=== PATIENT | male | born 1955 ===

== ENCOUNTER 2023-07-04 09:20 | Inpatient (IN) ==
[2023-07-04] MEDS ORDERED: MoRPHine SULFATE 4 MG/ML 1 ML CARP\\VIAL ONE (09:34)
[2023-07-04] MEDS ORDERED: NITROGLYCERIN/D5W 100 MCG/ML BTL ONE (09:35)
[2023-07-04] MEDS ORDERED: HEPARIN SOD (PORCINE) 1000 UNIT/ML ONE (09:37)
[2023-07-04] MEDS ORDERED: NITROGLYCERIN SL 0.4 MG/TAB TAB ONE (09:39)
--- NOTE | 2023-07-04 09:39 | XRay Report ---
SINGLE VIEW CHEST CLINICAL HISTORY: Atypical chest pain. FINDINGS: An AP, portable, upright chest radiograph is obtained. No prior studies are available for c omparison at the time of dictation. The examination is degraded by portable technique and apical lord otic positioning. The heart is enlarged and there is mild pulmonary vascular congestion. Scarring/ate lectasis is noted at the lung bases. The lungs and pleural spaces are otherwise clear. No pneumothora x is seen. The skeletal structures are osteopenic. The bony thorax is grossly intact. Fusion hardware is noted in the lower cervical spine. IMPRESSION: Cardiomegaly with pulmonary vascular congestion. ACT 112: Negative or not required by law. Electronically signed by: Ruben Batres M.D. 07/04/2023 9:38 AM
[2023-07-04] MEDS ORDERED: TICAGRELOR 90 MG TAB ONE (09:41)
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
[2023-07-04] MEDS ORDERED: Heparin IV Adult Wt-Based Low-Dose WITH Bolus Protocol IV STA (09:43)
[2023-07-04] MEDS ORDERED: MoRPHine SULFATE 4 MG/ML 1 ML CARP\\VIAL IV STA ×2 (09:43→09:49)
[2023-07-04] MEDS ORDERED: MIDAZOLAM HCL 1 MG/ML 2ML VIAL ONE (09:44)
[2023-07-04] MEDS ORDERED: fentaNYL citrate PF 100 MCG/2 ML VIAL ONE ×2 (09:44→09:46)
[2023-07-04] MEDS ORDERED: niCARdipine HCL INJ 2.5 MG/ML 10 ML AMP ONE (09:44)
[2023-07-04] MEDS ORDERED: HEPARIN (PORCINE) 1000 UNIT/ML 10 ML (CATH LAB USE ONLY) ONE (09:44)
[2023-07-04] MEDS ORDERED: NITROGLYCERIN/D5W 100MCG/ML 20ML SYR ONE (09:45)
[2023-07-04] MEDS ORDERED: STAT IV Infusion **Titration per Protocol STA (09:46)
[2023-07-04 09:55] LABS: Basophils # (auto) 0.03 K/uL (0-0.2); Basophils % (auto) 0.5 %; Eosinophils % (auto) 1.6 %; Hematocrit (blood only) 47.3 % (42.0-52.0); Hemoglobin 16.1 g/dl (14.0-18.0); Immature Granulocytes # (auto) 0.02 K/uL (0.01-0.20); Immature Granulocytes % (auto) 0.3 %; Lymphocytes % (auto) 28.2 %; Mean Corpuscular Hemoglobin 30.1 pg (25.0-34.0); Mean Corpuscular Volume 88.6 fL (80.0-100.0); Mean Platelet Volume 10.4 fL (9.4-12.4); Monocytes # (auto) 0.57 K/uL (0.11-0.59); Monocytes % (auto) 8.9 %; Neutrophils # (auto) 3.87 K/uL (1.40-6.50); Neutrophils % (auto) 60.5 %; Platelet Count 163 K/uL (130-400); RDW Coefficient of Variation 13.5 % (11.5-14.5); RDW Standard Deviation 43.5 fL (36.4-46.3); Red Blood Count 5.34 M/uL (4.70-6.10); White Blood Count 6.39 K/ul (4.8-10.8)
[2023-07-04] MEDS ORDERED: HEPARIN SOD (PORCINE) 1000 UNIT/ML IV ONE (09:58)
[2023-07-04] MEDS ORDERED: NITROGLYCERIN/D5W 100MCG/ML 250 ML IV SCH (10:00)
[2023-07-04] MEDS ORDERED: HEPARIN SODIUM/DEXTROSE 25,000 UNITS/500 ML BAG IV SCH (10:00)
[2023-07-04 10:11] LABS: Albumin Globulin Ratio 1.5 (0.9-2); Albumin Level 4.3 gm/dl (3.4-5.0); BUN Creatinine Ratio 20.9 (10-20); Calcium 9.6 mg/dl (8.6-10.3); Creatinine Clr Calc Pharmacy 104.4 ml/min; Est GFR (African American) 103.3 ml/min; Est GFR (Non-African American) 89.1 ml/min; Globulin 2.8 gm/dl (2.5-4.0); Potassium 3.9 mmol/L (3.5-5.1); Total Protein 7.1 gm/dl (6.0-8.3)
[2023-07-04 10:17] LABS: Troponin I High Sensitivity 14.6 pg/ml (0-20)
[2023-07-04] MEDS ORDERED: ATROPINE SULFATE 0.1 MG/ML 10ML SYR IV PRN (10:35)
[2023-07-04] MEDS ORDERED: ONDANSETRON INJ 2 MG/ML 2 ML VIAL IV PRN (10:35)
[2023-07-04] MEDS ORDERED: ACETAMINOPHEN 325 MG TAB PO PRN (10:35)
[2023-07-04] MEDS ORDERED: SODIUM CHLORIDE 0.9% 1000ML 1,000 ML IV SCH (10:45)
--- NOTE | 2023-07-04 10:47 | Pre Anesthesia Assessment ---
Date of Service July 04, 2023 Pre Sedation Assessment Vital Signs Temp Pulse Resp BP Pulse Ox O2 Del Method 07/04/23 09:50 59 L 15 156/83 H 97 Room Air 07/04/23 09:45 56 L 22 148/80 H 94 Room Air 07/04/23 09:34 60 16 168/82 H 98 Room Air 07/04/23 09:37 36.8 C 61 18 168/82 H 97 Room Air 07/04/23 09:36 62 Cardiovascular RRR, no murmur, no edema Respiratory normal respiratory effort, lungs clear to auscultation Pre-Sedation Airway Assessment Smoking Status: Never smoker Mallampati 2 ASA 4 Notes The planned sedation has been discussed with the patient. Informed Consent was obtained. I have identified the patient, determined the appropriateness of sedation and have assessed the patient immediately prior to the procedure. All medicine(s) and interventions are by my order. [facility] [place] Procedure Codes (Charges) Indication for Procedure Indication for procedure: Acute ST elevation NV
--- NOTE | 2023-07-04 10:49 | Post Anesthesia Assessment ---
Date of Service July 04, 2023 Post Sedation Assessment Vital Signs Temp Pulse Pulse Resp BP BP Pulse Ox 07/04/23 10:45 70 16 117/65 90 07/04/23 09:50 59 L 15 156/83 H 97 07/04/23 09:45 56 L 22 148/80 H 94 07/04/23 09:34 60 16 168/82 H 98 07/04/23 09:37 36.8 C 61 18 168/82 H 97 07/04/23 09:36 62 O2 Del Method 07/04/23 10:45 Room Air 07/04/23 09:50 Room Air 07/04/23 09:45 Room Air 07/04/23 09:34 Room Air 07/04/23 09:37 Room Air 07/04/23 09:36 Recovery Score Activity: Moves 4 extremities Respiration: Deep Breath/Cough Circulation: +/-20% PreAnes Value Consciousness: Fully Awake Oxygen Saturation: > 92% On Room Air Post Anesthesia Score: 10 Discharge Sedation Level of Care: Fast Track Phase II Post Sedation Plan On clinical assessment, the patient appears to have tolerated the sedation without complications. Patient is recovering as anticipated. Patient will continue to be monitored by nursing and may be discharged when sedation discharge criteria are met per below protocol. Upon Completions of procedure up to 15 minutes continue every 5 minute vital signs and the P.A.R. score; then discharge to a Phase I or Fast Track to Phase II per the following guidelines: * Discharge Patient to appropriate Phase II area if PAR is 8 or greater or return to pre- procedure baseline. The post - procedure orders will be as directed. * If PAR score is less than 8 or not return to pre-procedure baseline then patient will follow Phase I monitoring till PAR is reached for Phase II. The Phase I may be done in procedure room or may call to secure a Phase I area. * If naloxone or flumazenil are used for reversal, hold in Phase I for continued monitoring from when last reversal dose was given for a minimum of 60 minutes or longer pending the nurse and/or physician discretion of patient condition before discharge to Phase II. Please call the Sedation Physician to re-evaluate and complete post-note for discharge to Phase II area. Do NOT discharge from procedure sedation or Phase 1 until post- sedation evaluation note is complete by procedure /sedation MD Sedation Discharge Instructions to be given to the patient at discharge to home. [facility] Procedure Codes (Charges) Indication for Procedure Indication for procedure: Acute ST elevation DC Sedation/Anesthesia Procedure 1: Sedation/Anesthesia: 33694 Mod Sedation by the same physician;Init15 Min Child Age 5 & Up (Initial 15 min, start 1010) Total Sedation Time (minutes): 19 Procedure 2: Sedation/Anesthesia: 83900 Mod Sedation by the same physician; Ea [id number] Minutes (Additional 4 min, and 1029) Total Sedation Time (minutes): 19
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
[2023-07-04] MEDS: Heparin IV Adult Wt-Based Low-Dose WITH Bolus Protocol IV SCH ×3 (12:41→14:49)
[2023-07-04] MEDS: ICU Protocol for HYPERglycemia SCH ×3 (12:49→21:00)
[2023-07-04 13:35] LABS: Basophils # (auto) 0.01 K/uL (0-0.2); Basophils % (auto) 0.1 %; Eosinophils # (auto) 0.03 K/uL (0-0.50); Eosinophils % (auto) 0.3 %; Hematocrit (blood only) 43.8 % (42.0-52.0); Immature Granulocytes # (auto) 0.07 K/uL (0.01-0.20); Immature Granulocytes % (auto) 0.8 %; Lymphocytes # (auto) 0.79 K/uL (1.2-3.4); Lymphocytes % (auto) 8.7 %; Mean Corpuscular Hemoglobin 30.4 pg (25.0-34.0); Mean Corpuscular Hgb Conc 34.2 g/dL (32.0-36.0); Mean Corpuscular Volume 88.8 fL (80.0-100.0); Mean Platelet Volume 10.3 fL (9.4-12.4); Monocytes # (auto) 0.31 K/uL (0.11-0.59); Monocytes % (auto) 3.4 %; Neutrophils # (auto) 7.82 K/uL (1.40-6.50); Neutrophils % (auto) 86.7 %; Platelet Count 165 K/uL (130-400); RDW Coefficient of Variation 13.3 % (11.5-14.5); RDW Standard Deviation 43.5 fL (36.4-46.3); Red Blood Count 4.93 M/uL (4.70-6.10); White Blood Count 9.03 K/ul (4.8-10.8)
[2023-07-04 14:31] LABS: Estimated Average Glucose 120 mg/dl; Hemoglobin A1C 5.8 % (4.5-5.6)
--- NOTE | 2023-07-04 15:51 | Cardiac Catheterization ---
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 Cardiac Status Clinical evaluation leading to the procedure CAD Presenation: STEMI Anginal Classification: CCS IV Heart Failure: No Cardiogenic Shock within 24 Hours: No Cardiac Arrest within 24 Hours: No Imaging Studies Past 6 Months: No Stress Studies Past 6 Months: No STEMI OR Non-STEMI Symptom Onset Date: 07/04/23 Symptom Onset Time: 09:00 Thrombolytics: No Coronary Anatomy Dominant: Right Left Main (% Stenosis): Normal LAD (% Stenosis): Distal (100%) D1 (% Stenosis): Normal D2 (% Stenosis): Normal Circumflex (% Stenosis): Normal OM1 (% Stenosis): Normal L PL1 (% Stenosis): Normal RCA (% Stenosis): Proximal (30%) and Distal (30%) R PDA (% Stenosis): Normal R PL1 (% Stenosis): Normal Diagnostic Physicians Name: To Peterson MD, PhD Closure Device Percutaneous Entry Location: Radial Closure Device: Radial Band Recommendations: Medical Therapy and/or Counseling and PCI without planned CABG PCI Indication: PCI for STEMI - Stable First Noted: First EKG Lesion Segment Name: Distal LAD Culprit Artery: Yes Stenosis Prior to Rx (%): 100% Chronic Total Occlusion: No Pre-Procedure IVELISSE Flow: 0 Previously Treated Lesion: No Lesion Complexity: Non-High/Non-C Lesion Length (mm): 12 Thrombus Present: Yes Bifurcation Lesion: No Guidewire Across Lesion: Yes Intraprocedure Events Significant Disection: No Perforation: No Cardiac Cath Procedure Full Procedure Date July 04, 2023 Pre-Procedure Diagnosis Pre-Procedure Diagnosis: STEMI AUC Score AUC Score: 09 Post-Procedure Diagnosis Post-Procedure Diagnosis: Severe CAD Procedure(s) Performed Procedure(s) Performed: Coronary Angiography and Drug Eluting Stent 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 Sedated using IV Versed and fentanyl. Soft tissues of the right wrist were anesthetized using 2 mL of 1% Xylocaine. The right radial artery was accessed using modified Seldinger technique and a 6 Salvadorean radial artery glide sheath was placed. Patient was provided anticoagulation with IV heparin and antispasmodics including nicardipine and nitroglycerin. All catheters were advanced and exchanged over a 0.035 J-tip wire. Left coronary angiography in orthogonal views with a 5 Salv[place] 4 diagnostic catheter. Right coronary angiography in orthogonal views with a 5 Salvadorean JR4 diagnostic catheter Diagnostic catheters were removed. We next proceeded with PCI. 6 Salvadorean EBU 3.0 guide catheter was used to engage the left main coronary. Through this, a BMW reversal guidewire was advanced and positioned distally. The ACT was checked and additional heparin provided as needed to maintain therapeutic anticoagulation. Lesion was predilated using a 2.0 x 12 mm mini trek balloon inflated to 14 tani. A 2.5 x 15 mm Jerry drug-eluting stent was then deployed across the lesion at 18 tani for a final diameter of 2.75 mm. Stent balloon was removed and transcript evaluator angiography performed. Guidewire was removed and final angiographic evaluation was performed. Guide catheter was removed. Radial artery sheath was removed. Hemostasis was obtained using the TR band. Patient remained hemodynamically stable and asymptomatic. He was returned to the recovery area. This ended the case. Coronary angiography findings: [id number] vessel bifurcating into LAD and circumflex. No disease. LAD-this is a large caliber vessel. Proximal segment has mild luminal irregularities and provides a large septal branch and a small to medium caliber first diagonal. The mid segment has mild luminal irregularities and then there is a medium to large caliber branching second diagonal. This has mild disease. Just after the ostium the LAD is 100% occluded with IVELISSE 0 flow. [id number] and nondominant. Travels in the AV groove where the proximal segment is normal. It provides the first major obtuse marginal which is large and branching. This vessel has mild luminal irregularities. The mid AV groove circumflex becomes medium in caliber as it progresses distally the vessel becomes small and terminates in a small posterolateral branch. No angiographically significant disease in the circumflex or its branches. RCA-this is a very large and dominant branch. Proximally there is 30% focal stenosis. The mid segment has luminal irregularities and the distal segment has early 30% stenosis. It then bifurcates into a large PDA and a large multi branching posterolateral branch. These branch vessels have no angiographically significant disease. PCI of LAD- 0% residual stenosis post PCI IVELISSE-3 flow post PCI No evidence of dissection or perforation post PCI Summary: 1. Total occlusion of the early distal LAD. This is the culprit for acute TX. 2. Mild nonocclusive coronary disease in the remainder of the arteries as described 3. Successful PCI with implantation of a drug-eluting stent in the LAD. 4. Dual antiplatelet therapy with aspirin and Brilinta to complete 1 to 2 years therapy. 5. Guideline directed medical therapy for secondary prevention of coronary disease to include; low-dose aspirin, high intensity statin therapy, beta- jose, plus or minus RAISA inhibitor/ARB. Hemodynamics Rest Ao:: 135/80 mmHg Final Ao: 122/66 mmHg LV: Not performed Recommendations Recommendations: Medical Therapy and/or Counseling and PCI without planned CABG Radiation Exposure (mGy) 1273 mGy, fluoroscopy time 4.3 minutes Contrast (mls) 111 mL Anesthesia 1 mg IV Versed, 25 mcg IV fentanyl. Start time 1010, end time 1029 Procedural Complication(s) None Disposition ICU I attest to the content of the Intraoperative Record and any orders documented therein. Any exceptions are noted below. [employer] Card Cath Procedure Codes Cardiac Catheterization Procedure 1: Cardiovascular Cath Procedures: 07270 Coronaries Moderate Sedation Procedure 1: Sedation/Anesthesia: 04366 Mod Sedation by the same physician;Init15 Min Child Age 5 & Up (Initial 15-minute, start 1010) Procedure 2: Sedation/Anesthesia: 81905 Mod Sedation by the same physician; Ea [id number] Minutes (Additional 14-minute, end 1029) Stenting Procedure 1: Cardiovascular Stent Procedures: 01802 Perc transluminal revascularization of acute sub/total occl, aMI (LAD) PG Care Time/CCT Total # of Minutes Spent Total Time Spent with Patient: Total time spent is greater than 50% in coordination of care (as documented) at patient's floor/unit and/or counseling patient:
--- NOTE | 2023-07-04 17:54 | Electrocardiogram Report ---
Test Reason : Blood Pressure : / mmHG Vent. Rate : 056 BPM Atrial Rate : 056 BPM P-R Int : 174 ms QRS Dur : 076 ms QT Int : 416 ms P-R-T Axes : 033 050 047 degrees QTc Int : 401 ms Poor data quality, interpretation may be adversely affected Sinus bradycardia Low voltage QRS Acute anterior infarction Abnormal ECG No previous ECGs available Confirmed by Julio Cesar Grier ([id number]) on 07/04/2023 5:53:51 PM Referred By: Confirmed By:Julio Cesar Grier
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
[2023-07-04] MEDS: METOPROLOL TARTRATE 25 MG TAB PO SCH (20:59)
[2023-07-04] MEDS: TICAGRELOR 90 MG TAB PO SCH (20:59)
[2023-07-04] MEDS: MAGNESIUM SULFATE / D5W 1 GM/100 ML BAG IV SCH (22:38)
[2023-07-05] MEDS: MAGNESIUM SULFATE / D5W 1 GM/100 ML BAG IV SCH (00:12)
[2023-07-05 05:57] LABS: Troponin I High Sensitivity 1884.1 pg/ml (0-20)
[2023-07-05 06:48] LABS: BUN Creatinine Ratio 22.4 (10-20); Calcium 8.7 mg/dl (8.6-10.3); Creatinine Clr Calc Pharmacy 129.6 ml/min; Est GFR (African American) 114.4 ml/min; Est GFR (Non-African American) 98.7 ml/min; Magnesium 2.2 mg/dl (1.7-2.4); Potassium 3.9 mmol/L (3.5-5.1)
[2023-07-05 07:08] LABS: Basophils # (auto) 0.03 K/uL (0-0.2); Basophils % (auto) 0.4 %; Eosinophils # (auto) 0.08 K/uL (0-0.50); Eosinophils % (auto) 1.1 %; Hematocrit (blood only) 43.3 % (42.0-52.0); Hemoglobin 14.8 g/dl (14.0-18.0); Immature Granulocytes # (auto) 0.04 K/uL (0.01-0.20); Immature Granulocytes % (auto) 0.5 %; Lymphocytes # (auto) 1.03 K/uL (1.2-3.4); Lymphocytes % (auto) 13.6 %; Mean Corpuscular Hemoglobin 30.3 pg (25.0-34.0); Mean Corpuscular Hgb Conc 34.2 g/dL (32.0-36.0); Mean Corpuscular Volume 88.5 fL (80.0-100.0); Mean Platelet Volume 10.7 fL (9.4-12.4); Monocytes # (auto) 0.52 K/uL (0.11-0.59); Monocytes % (auto) 6.8 %; Neutrophils % (auto) 77.6 %; Platelet Count 166 K/uL (130-400); RDW Coefficient of Variation 13.4 % (11.5-14.5); RDW Standard Deviation 43.7 fL (36.4-46.3); Red Blood Count 4.89 M/uL (4.70-6.10)
[2023-07-05] MEDS ORDERED: POTASSIUM CHLORIDE CRTAB 20 MEQ TABCR PO STA (07:42)
--- NOTE | 2023-07-05 07:45 | Critical Care Progress Note ---
Date of Service July 05, 2023 Assessment & Plan (1) STEMI (ST elevation myocardial infarction): (2) Chest pain: (3) Obesity: Plan Chest x-ray 07/04/2023 personally reviewed: Good respiratory effort, bilateral costophrenic and cardiophrenic's are clean, increased cardiac silhouette, mildly increased pulmonary vascular markings -- STEMI S/p drug-eluting stent and LAD Continue with dual antiplatelet therapy and beta-jose Continue with atorvastatin RAISA inhibitor to be added once hemodynamic permits -- Ventricular tachycardia One of the episode lasting for more than 30 beats Likely from underlying revascularization Continue with beta-jose Follow-up 2D echo Keep potassium greater than 4, magnesium greater than 2, phosphorus greater than 3 --Dyslipidemia Continue with statin -- Obesity Advised to lose with diet and exercise Plan: In/out: +74, urine output 975 Potassium will be replaced to try to keep it greater than 4 Disposition as per cardiology. Please note the above document was generated using voice recognition software. It may contain grammatical, syntax or spelling errors.Any formal questions or concerns about the content, text or information contained within the body of this dictation should be directly addressed to the provider for clarification. Admission and Anticipated Discharge Date Admission Date: July 04, 2023 Subjective Patient seen and examined at bedside. No acute distress Overnight patient had 2 rounds of V. tach. One of the V. tach lasting greater than 30 beats Patient was hemodynamically stable during that time He denies any chest pain, no shortness of breath, no chest tightness Fair appetite, no nausea or vomiting Review of Systems Review of Systems: All systems reviewed & are unremarkable except as noted in Subjective Physical Exam Physical Exam: Constitutional: No acute distress HEENT: EOMI, PERRLA Respiratory system: Good air entry bilaterally, no wheeze, no rhonchi, mild crackles bilateral lower lobes more on the right side CVS: S1-S2 positive, no murmurs or gallops Abdomen: Soft, nontender, nondistended, positive bowel sounds x4 Extremities: +2 pulses bilaterally radialis/ dorsalis pedis, no cyanosis, no edema Neuro: Awake alert oriented x3 Psych: Normal mood and affect G/U: No [place] Skin: no rashes, warm and dry Lymphatic: no cervical or axillary lymphadenopathy Results & Data Results & Data Vital Signs (Past 12 Hours) Vital Signs Temp Pulse Resp BP Pulse Ox 08/23/23 07:08 61 07/05/23 06:00 59 L 14 142/73 H 97 07/05/23 05:00 59 L 12 146/78 H 95 07/05/23 04:00 60 3 L 155/83 H 95 07/05/23 03:00 55 L 13 138/74 95 07/05/23 02:00 57 L 14 165/84 H 95 07/05/23 01:00 63 20 146/63 H 96 07/05/23 00:00 58 L 10 L 148/72 H 96 07/04/23 23:00 57 L 7 L 149/76 H 95 07/04/23 22:00 59 L 12 162/76 H 96 07/04/23 20:00 36.8 C 07/05/23 00:00 36.8 C 07/05/23 03:53 36.7 C 07/05/23 00:30 57 L 07/04/23 21:30 65 19 97 07/04/23 21:00 61 16 149/68 H 95 07/04/23 20:59 62 20 190/87 H 97 07/04/23 20:30 62 18 96 07/04/23 20:00 61 17 184/93 H 96 Laboratory Results 07/05/23 04:28 07/05/23 04:23 Coding Level of Care Code 54854 SUB INP/OBS CARE 3/50MIN Diagnoses STEMI (ST elevation myocardial infarction) I21.3 Chest pain R07.9 Obesity E66.9
[2023-07-05] MEDS: ICU Protocol for HYPERglycemia SCH ×4 (08:06→20:30)
[2023-07-05] MEDS: ASPIRIN 81 MG ECTAB PO SCH (08:11)
[2023-07-05] MEDS: ATORVASTATIN 40 MG TAB PO SCH (08:11)
[2023-07-05] MEDS: METOPROLOL TARTRATE 25 MG TAB PO SCH ×2 (08:11→20:01)
[2023-07-05] MEDS: TICAGRELOR 90 MG TAB PO SCH ×2 (08:11→20:01)
--- NOTE | 2023-07-05 15:12 | Hospitalist Progress Note ---
Date of Service July 05, 2023 Assessment & Plan (1) STEMI (ST elevation myocardial infarction): (2) S/P coronary artery stent placement: (3) Obesity: Plan Patient is a 68 yr male with significant past medical history presents with substernal chest pain radiating to back. STEMI: --CXR:Cardiomegaly with pulmonary vascular congestion. 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 DVT Px: SCDs Code Status FULL CODE Admission and Anticipated Discharge Date Admission Date: July 04, 2023 Subjective Patient is seen and examined at bedside Denies any recurrence of chest pain Denies any dyspnea, dizziness, nausea, abd pain Offers no complaints today Review of Systems Review of Systems: All systems reviewed & are unremarkable except as noted in Subjective Physical Exam Physical Exam: Physical Exam: Vitals signs as noted above General Appearance:Moderately built and nourished, no apparent distress Head: normocephalic, Atraumatic Eyes: normal inspection, EOMI Neck: supple, Trachea midline Respiratory/Chest: Normal breath sounds, CTA, No accessory muscle use Cardiovascular: S1, S2, No murmur Abdomen/GI:Soft, Non tender, Bowel sounds present Extremities/Musculoskeletal:normal inspection, no edema Neurologic/Psych:AAOX3, grossly no focal neurological deficits Skin: normal color, warm Results & Data Results & Data Vital Signs (Past 12 Hours) Vital Signs Temp Pulse Pulse Resp BP BP Pulse Ox 07/05/23 14:25 36.9 C 61 16 139/76 98 07/05/23 12:16 141/74 H 94 07/05/23 12:00 63 17 07/05/23 12:22 36.8 C 07/05/23 08:00 63 17 95 07/05/23 08:00 146/72 H 07/05/23 07:00 66 18 94 07/05/23 07:00 158/82 H 07/05/23 08:00 36.7 C 07/05/23 07:08 61 07/05/23 06:00 59 L 14 142/73 H 97 07/05/23 05:00 59 L 12 146/78 H 95 07/05/23 04:00 60 3 L 155/83 H 95 07/05/23 03:53 36.7 C O2 Del Method 07/05/23 14:25 Room Air 07/05/23 12:16 07/05/23 12:00 07/05/23 12:22 07/05/23 08:00 07/05/23 08:00 07/05/23 07:00 Room Air 07/05/23 07:00 07/05/23 08:00 07/05/23 07:08 07/05/23 06:00 07/05/23 05:00 07/05/23 04:00 07/05/23 03:53 Laboratory Results Short CBC 07/05/23 Range/Units 04:28 WBC 7.60 (4.8-10.8) K/ul Hgb 14.8 (14.0-18.0) g/dl Hct 43.3 (42.0-52.0) % Plt Count 166 (130-400) K/uL BMP 07/05/23 04:23 Sodium 136 Potassium 3.9 Chloride 105 Carbon Dioxide 22 BUN 15 Creatinine 0.67 Glucose 107 H Calcium 8.7
[2023-07-06] MEDS: METOPROLOL TARTRATE 25 MG TAB PO SCH ×2 (08:21→22:05)
[2023-07-06] MEDS: TICAGRELOR 90 MG TAB PO SCH ×2 (08:22→22:13)
[2023-07-06] MEDS: ASPIRIN 81 MG ECTAB PO SCH (08:22)
[2023-07-06] MEDS: ATORVASTATIN 40 MG TAB PO SCH (08:22)
[2023-07-06 09:05] LABS: Hematocrit (blood only) 45.9 % (42.0-52.0); Hemoglobin 15.8 g/dl (14.0-18.0); Mean Corpuscular Hemoglobin 30.1 pg (25.0-34.0); Mean Corpuscular Hgb Conc 34.4 g/dL (32.0-36.0); Mean Corpuscular Volume 87.4 fL (80.0-100.0); Mean Platelet Volume 10.6 fL (9.4-12.4); Platelet Count 180 K/uL (130-400); RDW Coefficient of Variation 13.3 % (11.5-14.5); Red Blood Count 5.25 M/uL (4.70-6.10); White Blood Count 8.11 K/ul (4.8-10.8)
[2023-07-06 09:27] LABS: BUN Creatinine Ratio 20.5 (10-20); Calcium 9.2 mg/dl (8.6-10.3); Creatinine Clr Calc Pharmacy 117.7 ml/min; Est GFR (African American) 110.5 ml/min; Est GFR (Non-African American) 95.3 ml/min; Magnesium 2.1 mg/dl (1.7-2.4)
--- NOTE | 2023-07-06 10:38 | XCELERA ---
[id number]
--- NOTE | 2023-07-06 16:32 | Hospitalist Progress Note ---
Date of Service July 06, 2023 Assessment & Plan (1) STEMI (ST elevation myocardial infarction): (2) S/P coronary artery stent placement: (3) Obesity: Plan Patient is a 68 yr male with significant past medical history presents with substernal chest pain radiating to back. STEMI: --CXR:Cardiomegaly with pulmonary vascular congestion. 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 DVT Px: SCDs Ambulating Code Status FULL CODE Admission and Anticipated Discharge Date Admission Date: July 04, 2023 Subjective Patient is seen and examined at bedside States feeling well today Offers no new complaints Denies any chest pain, dyspnea, dizziness, nausea, vomiting, abdominal pain Review of Systems Review of Systems: All systems reviewed & are unremarkable except as noted in Subjective Physical Exam Physical Exam: Physical Exam: Vitals signs as noted above General Appearance:Moderately built and nourished, no apparent distress Head: normocephalic, Atraumatic Eyes: normal inspection, EOMI Neck: supple, Trachea midline Respiratory/Chest: Normal breath sounds, CTA, No accessory muscle use Cardiovascular: S1, S2, No murmur Abdomen/GI:Soft, Non tender, Bowel sounds present Extremities/Musculoskeletal:normal inspection, no edema Neurologic/Psych:AAOX3, grossly no focal neurological deficits Skin: normal color, warm Results & Data Results & Data Vital Signs (Past 12 Hours) Vital Signs Temp Pulse Pulse Resp BP Pulse Ox O2 Del Method 07/06/23 16:12 36.8 C 64 18 155/86 H 98 Room Air 07/06/23 11:21 36.8 C 62 16 133/72 96 Room Air 07/06/23 07:48 37.0 C 66 18 143/78 H 96 Room Air 07/06/23 07:38 68 07/06/23 04:46 36.7 C 64 20 139/75 94 Room Air Laboratory Results Short CBC 07/06/23 Range/Units 07:54 WBC 8.11 (4.8-10.8) K/ul Hgb 15.8 (14.0-18.0) g/dl Hct 45.9 (42.0-52.0) % Plt Count 180 (130-400) K/uL BMP 07/06/23 07:54 Sodium 137 Potassium 4.0 Chloride 105 Carbon Dioxide 26 BUN 15 Creatinine 0.73 Glucose 103 H Calcium 9.2
--- NOTE | 2023-07-06 17:02 | Cardiology Progress Note ---
Date of Service July 06, 2023 Assessment & Plan (1) Benign essential hypertension: Plan: Blood pressure is slightly above target. We will increase his metoprolol to tartrate to 37.5 mg p.o. twice daily. Otherwise continue current regimen but may add low-dose RAISA/ARB if blood pressure will tolerate after beta-jose change. (2) Atherogenic dyslipidemia: Plan: He is high risk. Untreated LDL was 109 making his target LDL reduction to 55 mg/dL. Continue atorvastatin 40 mg daily. (3) S/P coronary artery stent placement: Plan: Successful and uncomplicated PCI. He will need to remain on dual antiplatelet therapy for 1 to 2 years per guideline. Currently aspirin 81 mg daily and Brilinta 90 mg p.o. daily. This will continue at discharge. (4) Coronary artery disease: Plan: No significant residual disease post PCI. Guideline directed medical therapy for secondary prevention will be ongoing. Continue low-dose aspirin, metoprolol tartrate, high intensity statin therapy, plus or minus RAISA inhibitor/ARB as tolerated. I highly recommend that he participate in cardiac rehab after discharge. Furthermore, I would like to have him follow-up in the cardiology office within 1 to 3 weeks of discharge. (5) NSVT (nonsustained ventricular tachycardia): Plan: This is brief and asymptomatic. Does not appear to be an electrolyte issue. It is most likely secondary to post MT irritability. Increasing his beta-jose may be adequate to reduce the likelihood of recurrent arrhythmia. Keep him overnight and reassess tomorrow. He will likely be appropriate for discharge at that time. Plan Probable discharge tomorrow Admission and Anticipated Discharge Date Admission Date: July 04, 2023 Subjective Patient denies any chest pain or shortness of breath. He is feeling well. He did have additional brief episodes of nonsustained ventricular tachycardia which are evidently asymptomatic. Echocardiogram was completed demonstrating anticipated wall motion abnormalities but not significant decrease in EF. His labs are reviewed and he has not required additional supplemental potassium. He voices no complaints or concerns at this time. Review of Systems Review of Systems: Negative except as per HPI Physical Exam Constitutional: WD/WN, vitals as above Neck: No JVD Respiratory: Clear to auscultation bilaterally. No wheezing, rhonchi, or rales Cardiovascular: Regular rate and rhythm. S4 gallop. I do not appreciate any rubs or murmurs. No edema. Musculoskeletal: no cyanosis or clubbing, extremities motor strength 5/5 (Right radial access intact. Good distal perfusion) Neurologic: Cognition is intact. Speech is fluent. No focal deficits. No tremor Psychiatric: A+Ox3, euthymic affect Results & Data Vital Signs (Past 12 Hours) Vital Signs Temp Pulse Pulse Resp BP Pulse Ox O2 Del Method 07/06/23 16:12 36.8 C 64 18 155/86 H 98 Room Air 07/06/23 11:21 36.8 C 62 16 133/72 96 Room Air 07/06/23 07:48 37.0 C 66 18 143/78 H 96 Room Air 07/06/23 07:38 68 PG Care Time/CCT Total # of Minutes Spent Total Time Spent with Patient: Total time spent is greater than 50% in coordination of care (as documented) at patient's floor/unit and/or counseling patient: Coding Level of Care Code 76131 SUB INP/OBS CARE 2/35MIN Diagnoses Benign essential hypertension I10 Atherogenic dyslipidemia E78.5 S/P coronary artery stent placement Z95.5 Coronary artery disease I25.10 NSVT (nonsustained ventricular tachycardia) I47.29
[2023-07-07 07:27] LABS: Hemoglobin 16.2 g/dl (14.0-18.0); Mean Corpuscular Hemoglobin 30.3 pg (25.0-34.0); Mean Corpuscular Hgb Conc 34.5 g/dL (32.0-36.0); RDW Coefficient of Variation 13.4 % (11.5-14.5); RDW Standard Deviation 43.3 fL (36.4-46.3); Red Blood Count 5.34 M/uL (4.70-6.10); White Blood Count 7.99 K/ul (4.8-10.8)
[2023-07-07 07:28] LABS: Mean Platelet Volume 10.6 fL (9.4-12.4); Platelet Count 177 K/uL (130-400)
[2023-07-07 07:43] LABS: BUN Creatinine Ratio 20.7 (10-20); Calcium 9.4 mg/dl (8.6-10.3); Creatinine Clr Calc Pharmacy 104.5 ml/min; Est GFR (African American) 105.3 ml/min; Est GFR (Non-African American) 90.9 ml/min; Potassium 4.1 mmol/L (3.5-5.1)
[2023-07-07] MEDS: METOPROLOL TARTRATE 25 MG TAB PO SCH (08:33)
[2023-07-07] MEDS: ASPIRIN 81 MG ECTAB PO SCH (08:33)
[2023-07-07] MEDS: ATORVASTATIN 40 MG TAB PO SCH (08:33)
[2023-07-07] MEDS: TICAGRELOR 90 MG TAB PO SCH (08:34)
--- NOTE | 2023-07-07 12:17 | Hospitalist Progress Note ---
Date of Service July 07, 2023 Assessment & Plan (1) STEMI (ST elevation myocardial infarction): (2) S/P coronary artery stent placement: (3) Obesity: Plan Patient is a 68 yr male with significant past medical history presents with substernal chest pain radiating to back. STEMI: --CXR:Cardiomegaly with pulmonary vascular congestion. 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 DVT Px: SCDs Ambulating Code Status FULL CODE Disposition Home Admission and Anticipated Discharge Date Admission Date: July 04, 2023 Subjective Patient is seen and examined at bedside Doing well, offers no new complaints Ambulating in hallway with no issues Discussed with patient's family at bedside Denies any chest pain, dyspnea, dizziness, nausea, vomiting, abdominal pain Also discussed with Cardiology today Review of Systems Review of Systems: All systems reviewed & are unremarkable except as noted in Subjective Physical Exam Physical Exam: Physical Exam: Vitals signs as noted above General Appearance:Moderately built and nourished, no apparent distress Head: normocephalic, Atraumatic Eyes: normal inspection, EOMI Neck: supple, Trachea midline Respiratory/Chest: Normal breath sounds, CTA, No accessory muscle use Cardiovascular: S1, S2, No murmur Abdomen/GI:Soft, Non tender, Bowel sounds present Extremities/Musculoskeletal:normal inspection, no edema Neurologic/Psych:AAOX3, grossly no focal neurological deficits Skin: normal color, warm Results & Data Results & Data Vital Signs (Past 12 Hours) Vital Signs Temp Pulse Resp BP Pulse Ox O2 Del Method 07/07/23 07:23 36.8 C 62 16 127/69 94 Room Air 07/07/23 03:25 36.9 C 61 17 147/80 H 93 Room Air Laboratory Results Short CBC 08/25/23 Range/Units 06:53 WBC 7.99 (4.8-10.8) K/ul Hgb 16.2 (14.0-18.0) g/dl Hct 47.0 (42.0-52.0) % Plt Count 177 (130-400) K/uL [facility] 07/07/23 06:53 Sodium 137 Potassium 4.1 Chloride 105 Carbon Dioxide 25 BUN 17 Creatinine 0.82 Glucose 100 H Calcium 9.4
--- NOTE | 2023-07-07 12:53 | Discharge Summary ---
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 Chest pain was midsternal and radiated to his back. It was also associated with SOB, diaphoresis and nausea. Pt went to [facility] where he was then referred to ED for further eval via EMS. EMS called medical command showing ST segment elevations anteriorly. He received 3 NTG and full dose ASA in the field prior to arrival. He was made a heart alert and emergently went to [facility] for further intervention. He received 1 VIRA TO LAD. NTG did improve the pain initially; however then it returned on arrival. Pt was seen post coronary angiography in the ICU with at bedside. He is initially from [place] and recently moved to [facility] after [place] "[place] and now are permanent residents. His PCP is in [facility] who he has not seen in a few years. He denies any known medical problems and only takes a baby aspirin and MVI daily. He admits to missing this the past couple days. He drinks 1-2 be ers a day. Denies drug or tobacco use. 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 Currently he feels great and is wishing to go home. Denies any chest pain, f/c/s, dizziness, sob, n/v/d, abd pain. No recent illness and appetite has been good. No FH of CAD, HTN, HLD. Mother alive at 93 and only takes vitamins. His father recently passed at 90 years of age w/o medical ailment. Currently his blood pressure is stable. Admission Exam Per Admitting Provider Constitutional: WD/WN, vitals as above, NAD, sitting up in bed, pleasant, conversing easily Head: Normocephalic, Atraumatic Eyes: PERRL, conjunctivae normal, anicteric sclerae ENMT: external ear and nose normal, oropharynx normal Neck: trachea midline, no thyromegaly normal visual inspection Respiratory: normal respiratory effort, lungs clear to auscultation, no wheeze, rales, rhonchi. Normal insp/exp effort, no accessory muscle use Cardiovascular: RRR, no murmur, no edema , R Radial band intact, no bleeding Vessels: no JVD or carotid bruit Chest: normal inspection of chest Abdomen: normal bowel sounds, soft, nontender, no hepatosplenomegaly Musculoskeletal: no cyanosis or clubbing, extremities motor strength 5/5 Skin: no rashes, warm and dry normal turgor Neurologic: PERRL, EOMI, accommodation nl, no face palsy, no dysarthria CN's II-XI intact bilaterally and moves all extremities Psychiatric: A+Ox3, euthymic affect : deferred Principal Diagnosis ST elevation Myocardial Infarction Nonsustained ventricular tachycardia Discharge Data Allergies Allergy/AdvReac Type Severity Reaction Status Date / Time No Known Allergies Allergy Verified 07/04/23 11:46 Consultations 07/04/23 10:26 ED Decision to Admit Stat 07/04/23 10:42 Consult Railway Head Tender Routine Procedures Performed Operation Date: 07/04/23 09:45 Actual Procedures p Cineradiography w/Routine Exam - To Peterson MD, PhD p Aspiration/PCI w/VIRA for Stemi - To Peterson MD, PhD p Cath, Coronaries ONLY (no LV) - To Peterson MD, PhD Laboratory Results WBC 7.99 K/ul (4.8-10.8) 07/07/23 06:53 RBC 5.34 M/uL (4.70-6.10) 07/07/23 06:53 Hgb 16.2 g/dl (14.0-18.0) 07/07/23 06:53 Hct 47.0 % (42.0-52.0) 07/07/23 06:53 MCV 88.0 fL (80.0-100.0) 07/07/23 06:53 MCH 30.3 pg (25.0-34.0) 07/07/23 06:53 MCHC 34.5 g/dL (32.0-36.0) 07/07/23 06:53 RDW Std Deviation 43.3 fL (36.4-46.3) 07/07/23 06:53 RDW Coeff of [place] 13.4 % (11.5-14.5) 07/07/23 06:53 Plt Count 177 K/uL (130-400) 07/07/23 06:53 MPV 10.6 fL (9.4-12.4) 07/07/23 06:53 Immature Gran % (Auto) 0.5 % 07/05/23 04:28 Neut % (Auto) 77.6 % 07/05/23 04:28 Lymph % (Auto) 13.6 % 07/05/23 04:28 [place] % (Auto) 6.8 % 07/05/23 04:28 Eos % (Auto) 1.1 % 07/05/23 04:28 Baso % (Auto) 0.4 % 07/05/23 04:28 Neut # (Auto) 5.90 K/uL (1.40-6.50) 07/05/23 04:28 Lymph # (Auto) 1.03 K/uL (1.2-3.4) L 07/05/23 04:28 [place] # (Auto) 0.52 K/uL (0.11-0.59) 07/05/23 04:28 Eos # (Auto) 0.08 K/uL (0-0.50) 07/05/23 04:28 Baso # (Auto) 0.03 K/uL (0-0.2) 07/05/23 04:28 Immature Gran # (Auto) 0.04 K/uL (0.01-0.20) 07/05/23 04:28 Activ Coag Time Kaolin 251 SECONDS (94-140) H 07/04/23 10:28 Sodium 137 mmol/L (136-145) 07/07/23 06:53 Potassium 4.1 mmol/L (3.5-5.1) 07/07/23 06:53 Chloride 105 mmol/L (98-107) 07/07/23 06:53 Carbon Dioxide 25 mmol/L (21-32) 07/07/23 06:53 Anion Gap 7 (3-11) 07/07/23 06:53 BUN 17 mg/dl (6-23) 07/07/23 06:53 Creatinine 0.82 mg/dl (0.6-1.4) 07/07/23 06:53 Est Cr Clr Drug Dosing 104.5 ml/min 07/07/23 06:53 Est GFR ( Amer) 105.3 ml/min 07/07/23 06:53 Est GFR (Non-Af Amer) 90.9 ml/min 07/07/23 06:53 BUN/Creatinine Ratio 20.7 (10-20) H 07/07/23 06:53 Glucose 100 mg/dl (70-99(Fasting)) H 07/07/23 06:53 POC Glucose 111 mg/dl (70-99) H 07/05/23 03:51 Estimat Average Glucose 120 mg/dl 07/04/23 13:03 Hemoglobin A1c 5.8 % (4.5-5.6) H 07/04/23 13:03 Calcium 9.4 mg/dl (8.6-10.3) 07/07/23 06:53 Magnesium 2.1 mg/dl (1.7-2.4) 07/06/23 07:54 Total Bilirubin 1.0 mg/dl (0.2-1.0) 07/04/23 09:35 AST 17 U/L (13-39) 07/04/23 09:35 ALT 19 U/L (7-52) 07/04/23 09:35 Alkaline Phosphatase 47 U/L (34-104) 07/04/23 09:35 Troponin I High Sens 1884.1 pg/ml (0-20) H* D 07/05/23 04:23 Total Protein 7.1 gm/dl (6.0-8.3) 07/04/23 09:35 Albumin 4.3 gm/dl (3.4-5.0) 07/04/23 09:35 Globulin 2.8 gm/dl (2.5-4.0) 07/04/23 09:35 Albumin/Globulin Ratio 1.5 (0.9-2) 07/04/23 09:35 Triglycerides 197 mg/dl (0-150) H 07/05/23 04:23 Cholesterol 185 mg/dl (0-200) 07/05/23 04:23 LDL Cholesterol, Calc 109 mg/dl 07/05/23 04:23 VLDL Cholesterol, Calc 39 mg/dl (0-30) H 07/05/23 04:23 HDL Cholesterol 37 mg/dl 07/05/23 04:23 Cholesterol/HDL Ratio 5.0 (0-5) 07/05/23 04:23 Lipase 23 U/L (11-82) 07/04/23 09:35 Nasal Screen MRSA (PCR) Negative (Negative) 07/04/23 12:00 Hepatitis C Ab (EIA) NON-REACTIVE (NON-REACTIVE) 07/05/23 04:23 Impressions Chest X-Ray 07/04/23 09:20 SINGLE VIEW CHEST CLINICAL HISTORY: Atypical chest pain. FINDINGS: An AP, portable, upright chest radiograph is obtained. No prior studies are available for comparison at the time of dictation. The examination is degraded by portable technique and apical lordotic positioning. The heart is enlarged and there is mild pulmonary vascular congestion. Scarring/atelectasis is noted at the lung bases. The lungs and pleural spaces are otherwise clear. No pneumothorax is seen. The skeletal structures are osteopenic. The bony thorax is grossly intact. Fusion hardware is noted in the lower cervical spine. IMPRESSION: Cardiomegaly with pulmonary vascular congestion. ACT 112: Negative or not required by law. Electronically signed by: Ruben Batres M.D. 07/04/2023 9:38 AM Ordered Studies 07/04/23 09:29 CL Cath Imgs for PACS use only Stat Hospital Course (1) STEMI (ST elevation myocardial infarction): (2) S/P coronary artery stent placement: (3) Obesity: Plan Patient is a 68 yr male with significant past medical history presents with substernal chest pain radiating to back. STEMI: --CXR:Cardiomegaly with pulmonary vascular congestion. 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 DVT Px: SCDs Ambulating Code Status FULL CODE Disposition Home Total Time Total Time Spent Total Time Spent (In Minutes): 54 minutes Discharge Plan Discharge Items Patient Disposition: Home - Self-Care Reason For Visit: ACUTE STEMI Discharge Diagnosis: ST elevation Myocardial Infarction Nonsustained ventricular tachycardia Activity: Per Instructions section Exercise/Sports: Wait until after follow-up appointment Non-emergency contact: Primary Care Provider and Remedial Teacher Call non-emergency contact if: you have any medication questions, your symptoms worsen, your pain is concerning for you and you have a fever Follow-up/Referrals: Felipe Garcia MD [Outside Practitioners] - (Date & Time 07/10/2023 10:00 AM Provider Felipe Garcia MD Department [facility] ) Diet: Heart Healthy Addtl Attending Provider Instructions: Follow up with your Primary Care physician in 1 week Follow up with your Remedial Teacher in 1-2 weeks --Quit drinking alcohol as advised Seek immediate medical attention if your symptoms reoccur or worsen Please take all medications as instructed on discharge list below. Please call if you have any questions or problems. You can reach a [facility] hospitalist on duty at [facility] 24 hours a day by calling [phone] Home Care: * Take your medications exactly as directed. Don't skip doses. * Remember that recovery after a heart attack takes time. Plan to rest for at lease 4-8 weeks while you recover. Then return to normal activity when your doctor says it's okay. * Ask your doctor about joining a heart rehabilitation program. * Tell your doctor if you are feeling depressed. Feelings of sadness are common after a heart attack, but it is important that you speak to someone if you are feeling overwhelmed by these feelings. * If you are having chest pain, call 911 for an ambulance. Do NOT drive yourself to the hospital. * Ask your family members to learn CPR. * Learn to take your own blood pressure and pulse. Keep a record of your results. Ask your doctor when you should seek emergency medical attention. He or she will tell you which blood pressure reading is dangerous. Lifestyle Changes: * Maintain a healthy weight. Get help to lose any extra pounds. * Cut back on salt. * Limit canned, dried, packaged, and fast foods. * Don't add salt to your food. * Season foods with herbs instead of salt when you cook. * Break the smoking habit. Enroll in a stop-smoking program to improve your chances of success. * Limit fatty foods. * Ask your doctor about having your lipid levels checked regularly. * Build up your activity according to your doctor's recommendation. * Ask your doctor when it's okay to resume sexual activity. * Tell your doctor about any erectile dysfunction (ED) medication you are taking. Some ED medications are not safe if you take certain heart medications. * Try to manage stress. Follow Up: It is important for you to keep your follow up appointments with your medical provider. Pending Studies at Discharge: No Stand-Alone Forms: My [facility], Smoking Cessation Medications and DC Order Prescriptions: New Brilinta 90 mg Tablet 90 mg PO BID Qty: 60 1RF atorvastatin 40 mg Tablet 40 mg PO QAM Qty: 30 1RF metoprolol tartrate 25 mg Tablet 37.5 mg PO BID 30 Days Qty: 90 1RF Continued multivitamin Tablet 1 tab PO DAILY Changed aspirin 81 mg Tablet,Delayed Release (Dr/Ec) 81 mg PO QAM Qty: 30 1RF Discharge Orders: Discharge Order (Routine); Ordered 07/07/23 Ordered By: Jeff Ross Admission Data Admit Date/Time: 07/04/23 10:42 Attending Provider: Jeff Ross Admit Provider: To Peterson Primary Care Provider: PCP,NO Other Providers: Casi Lizarraga ; Ruben Santoyo ; Ezequiel Newton ; Freeman Daniel ; Brian Aguirre ; Avel Lopez ; Lui Hayward ; Hi Schaeffer ; Anselmo Martinez ; Renata Cutler ; Nimo Kay ; Balwinder Pickard
== END 2023-07-07 13:42 | disposition home or self-care (01) | DRG 247 ==
LOC: ED 09:20 → OR 09:55 → SUATTDRO 10:42 → 1E 10:42 → 2S 07-05 14:00
PROC: CLB.CCO (2023-07-04 09:45)